=== PATIENT | female | born 1985 | race Caucasian/White ===

== ENCOUNTER 2018-03-10 15:12 | Inpatient (IN) | payer SELFPAY ==
[~2018-03-10] VITALS: Ht 165.1 cm; Wt 83.9 kg
[2018-03-10] MEDS ORDERED: IV NS 0.9% 1,000 ML BAG IV ONE (15:30)
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
--- NOTE | 2018-03-10 15:55 | NUR ---
PT TAKEN TO XRAY/CT.
[2018-03-10 16:20] LABS: BASOPHILS % (AUTO) 0.3 % (0.0-2.0); EOSINOPHILS % (AUTO) 0.2 % (0.0-6.0); HEMATOCRIT 29 % (33-45); HEMOGLOBIN 9.2 g/dL (11.5-14.8); LYMPHOCYTES # (AUTO) 1.1 /CMM (0.8-4.8); MEAN CORPUSCULAR HEMOGLOBIN 20 PG (26.0-33.0); MEAN CORPUSCULAR HGB CONC 32 g/dl (31.0-36.0); MEAN CORPUSCULAR VOLUME 64 fL (82-100); MONOCYTES # (AUTO) 0.4 /CMM (0.1-1.30); MONOCYTES % (AUTO) 4.4 % (2.0-12.0); NEUTROPHILS # (AUTO) 8.6 /CMM (1.8-8.9); NEUTROPHILS % (AUTO) 84.1 % (43.0-81.0); PLATELET COUNT (AUTO) 242 /CMM (150-450); RDW COEFFICIENT OF VARIATION 16.2 (11.5-15.0); RED BLOOD CELL COUNT(AUTO) 4.54 MIL/uL (4.0-5.2); WHITE BLOOD COUNT (AUTO) 10.1 K/uL (4.3-11.0)
[2018-03-10 16:34] LABS: INR 0.98 (0.85-1.15)
[2018-03-10 16:38] LABS: TROPONIN I < 0.017 ng/mL (0.00-0.056)
--- NOTE | 2018-03-10 16:46 | NUR ---
ORTHO ON-CALL PAGED.
[2018-03-10] MEDS ORDERED: MORPHINE SULFATE INJ 2 MG/ML DISP.SYRIN ONE (16:51)
[2018-03-10] MEDS ORDERED: MORPHINE SULFATE INJ 4 MG/ML DISP.SYRIN ONE (16:51)
[2018-03-10 16:52] LABS: CARBON DIOXIDE 23 mmol/L (21-32); CHLORIDE 106 mmol/L (98-107); POTASSIUM 3.2 mmol/L (3.5-5.1); SODIUM SERUM 138 mmol/L (136-145)
[2018-03-10 16:53] LABS: ALANINE AMINOTRANSFERASE 25 U/L (12-78); ALBUMIN 3.4 g/dL (3.4-5.0); ALKALINE PHOSPHATASE 70 U/L (46-116); ASPARTATE AMINOTRANSFERASE 17 U/L (15-37); BILIRUBIN,DIRECT 0.1 mg/dL (0.0-0.2); BILIRUBIN,TOTAL 0.2 mg/dL (0.2-1.0); CALCIUM, SERUM 8.7 mg/dL (8.5-10.1); CREATININE 0.8 mg/dL (0.6-1.3); GLUCOSE 96 mg/dL (74-106); TOTAL PROTEIN, SERUM 7.7 g/dL (6.4-8.2); UREA NITROGEN, BLOOD 10 mg/dL (7-18)
[2018-03-10] MEDS ORDERED: MORPHINE SULFATE INJ 2 MG/ML DISP.SYRIN IM ONE (17:00)
--- NOTE | 2018-03-10 17:05 | NUR ---
MANDO BRANCH AT BEDSIDE FOR L ANKLE SPLINT PLACEMENT.
[2018-03-10] MEDS ORDERED: MORPHINE SULFATE INJ 2 MG/ML DISP.SYRIN IV PRN (18:30)
[2018-03-10] MEDS ORDERED: ONDANSETRON HCL/PF 4 MG/2 ML VIAL IVP PRN (18:30)
[2018-03-10] MEDS ORDERED: ZOLPIDEM TARTRATE 5 MG TABLET PO PRN (18:30)
[2018-03-10] MEDS ORDERED: ACETAMINOPHEN 325 MG TABLET PO PRN (18:30)
[2018-03-10] MEDS ORDERED: Z GUARD REMEDY 2 OZ OINT TP PRN (18:30)
[2018-03-10] MEDS ORDERED: MAG HYDROX/AL HYDROX/SIMETH 30 ML UDC PO PRN (18:30)
[2018-03-10] MEDS ORDERED: HYDROMORPHONE INJ 2 MG/ML DISP.SYRIN IV PRN (18:30)
[2018-03-10] MEDS ORDERED: ALPRAZOLAM 0.25 MG TABLET PO PRN (18:30)
[2018-03-10] MEDS ORDERED: MAGNESIUM HYDROXIDE 30 ML UDC PO PRN (18:30)
[2018-03-10] MEDS ORDERED: POTASSIUM CHLORIDE 20 MEQ TAB.PRT.SR PO ONE ×2 (19:00→20:30)
[2018-03-10] MEDS ORDERED: HYDROMORPHONE INJ 2 MG/ML DISP.SYRIN ONE (19:46)
--- NOTE | 2018-03-10 19:49 | NUR ---
MEDICATED PT ORDERED FOR PAIN
[2018-03-10 20:00] VITALS: BP 131/71
--- NOTE | 2018-03-10 20:06 | NUR ---
COMPUTER SYSTEMS INFORMATION DIRECTOR NEW ADMISSION NOTES RECEIVED PT FROM ER VIA DAVE, ACCOMPANIED BY STAFF TO ROOM 313-1. A & O X 4, NO SOB, NO ACUTE CHANGES NOTED. NO EPISODE OF LOC NOTED. VSS, @ RA, SATTING 100%. HAS C/O PAIN 3/10 TO LEFT LEG & ANKLE. MORPHINE WAS GIVEN IN THE ER & WAS EFFECTIVE. ABLE TO USE RIGHT LEG FOR MOBILITY. SKIN CLEAR & INTACT. IV ACCESS TO RIGHT HAND, INTACT PATENT. ALL BELONGINGS ACCOUNTED FOR & DOCUMENTED BY ACID CLEANER. ALL NEEDS MET. ALL ORDERS REVIEWED WITH MD, NOTED & CARRIED OUT. INSTRUCTED PT TO INFORM THE NURSE IF PAIN MED IS NEEDED, PT VERBALIZED UNDERSTANDING. BED IN LOW LOCKED POSITION, CALL LIGHT WITHIN REACH. SAFETY MEASURES IN PLACE. WILL CONTINUE TO MONITOR ACCORDINGLY.
[2018-03-10 20:10] VITALS: BP 131/71
--- NOTE | 2018-03-10 20:10 | NUR ---
CARTOGRAPHIC DESIGNER NOTE PT IA ON TELE MONITORING WITH SR 70. NO SRINIVAS NOTED. PT IS CALM & COOPERATIVE @ THIS TIME.
--- NOTE | 2018-03-10 20:18 | NUR ---
PT TRANSFERED TO FLOOR. STABLE CONDITION.
[2018-03-10] MEDS: IV NS 0.9% 1,000 ML IV PRN (20:53)
--- NOTE | 2018-03-10 22:22 | NUR ---
DC DILAUDID PHARMACIST DIANNA CALLED TO CLARIFY DILAUDID & MORPHINE ORDER WITH , PER DIANNA, ONE PAIN MED NEEDS TO BE DC'D. PT PREFFERED TO GET MORPHINE IF NEEDED. CLARIFIED THE ORDER & DC'D DILAUDID. NOTED & CARRIED OUT.
[2018-03-11] VITALS: BP 107/60
--- NOTE | 2018-03-11 01:53 | NUR ---
PHYSICIAN ASST NOTE PT IS SLEEPING @ THIS TIME. NO S/S OF PAIN NOTED. MONITORING CLOSELY.
[2018-03-11 04:00] VITALS: BP 116/68
[2018-03-11] MEDS: MORPHINE SULFATE INJ 4 MG/ML DISP.SYRIN IV PRN ×2 (04:28→09:05)
--- NOTE | 2018-03-11 04:28 | NUR ---
PRN MORPHINE GIVEN PT C/O PAIN TO LEFT LEG/ANKLE 04/08, OFFERED NORCO BUT SHE ASKED FOR MORPHINE DUE TO SEVERE PAIN. VSS, 116/68, 67, 18, 99% @ RA. PRN MORPHINE GIVEN, WILL REASSESS FOR EFFECTIVENESS.
--- NOTE | 2018-03-11 06:35 | NUR ---
LENS MOLDING EQUIPMENT OPERATOR CLOSING NOTES PT SLEPT INTERMITTENTLY @ NIGHT, A & O X 4, NO SOB, NO ACUTE CHANGES NOTED. NO EPISODE OF LOC NOTED. VSS, @ RA, SATTING 100%. HAS C/O PAIN 3/10 TO LEFT LEG & ANKLE. MORPHINE WAS GIVEN PRN & WAS EFFECTIVE. ABLE TO USE RIGHT LEG FOR MOBILITY. IV ACCESS TO RIGHT HAND, INTACT PATENT. ALL NEEDS MET. INSTRUCTED PT TO INFORM THE NURSE IF PAIN MED IS NEEDED, PT VERBALIZED UNDERSTANDING. BED IN LOW LOCKED POSITION, CALL LIGHT WITHIN REACH. SAFETY MEASURES IN PLACE. WILL ENDORSE TO AM RN FOR CONTINUITY OF CARE.
[2018-03-11 07:10] LABS: BASOPHILS % (AUTO) 0.4 % (0.0-2.0); EOSINOPHILS % (AUTO) 0.6 % (0.0-6.0); HEMATOCRIT 29 % (33-45); HEMOGLOBIN 9.2 g/dL (11.5-14.8); LYMPHOCYTES # (AUTO) 1.6 /CMM (0.8-4.8); LYMPHOCYTES % (AUTO) 22.6 % (20.0-44.0); MEAN CORPUSCULAR HEMOGLOBIN 21 PG (26.0-33.0); MEAN CORPUSCULAR HGB CONC 32 g/dl (31.0-36.0); MEAN CORPUSCULAR VOLUME 65 fL (82-100); MONOCYTES # (AUTO) 0.4 /CMM (0.1-1.30); MONOCYTES % (AUTO) 5.4 % (2.0-12.0); NEUTROPHILS # (AUTO) 5.3 /CMM (1.8-8.9); PLATELET COUNT (AUTO) 265 /CMM (150-450); RDW COEFFICIENT OF VARIATION 16.4 (11.5-15.0); RED BLOOD CELL COUNT(AUTO) 4.42 MIL/uL (4.0-5.2); WHITE BLOOD COUNT (AUTO) 7.3 K/uL (4.3-11.0)
[2018-03-11 07:16] LABS: ALBUMIN 3.2 g/dL (3.4-5.0); BILIRUBIN,TOTAL 0.3 mg/dL (0.2-1.0); CALCIUM, SERUM 8.4 mg/dL (8.5-10.1); CREATININE 0.6 mg/dL (0.6-1.3); POTASSIUM 3.8 mmol/L (3.5-5.1); TOTAL PROTEIN, SERUM 7.5 g/dL (6.4-8.2)
[2018-03-11 07:27] LABS: CREATINE KINASE MB 0.7 ng/mL (0-3.6); THYROID STIMULATING HORMONE 4.65 uIU/mL (0.358-3.74)
[2018-03-11 08:00] VITALS: BP 112/66
[2018-03-11] MEDS: IV NS 0.9% 1,000 ML IV PRN ×2 (09:06→23:40)
[2018-03-11] MEDS ORDERED: ALPRAZOLAM 0.5 MG TABLET PO PRN (09:21)
[2018-03-11 09:53] LABS: RETICULOCYTE COUNT 1.8 % (0.6-2.5)
[2018-03-11] MEDS: HYDROCODONE/APAP 10/325MG 1 EA TABLET PO PRN ×2 (15:04→22:09)
[2018-03-11 16:00] VITALS: BP 111/65
[2018-03-11] MEDS: SOD FERRIC GLUC 125 MG in IV NS 0.9% 100 ML IV SCH (16:25)
--- NOTE | 2018-03-11 18:07 | NUR ---
Patient lives locally with spouse/family.She is ambulatory and independent with adl's prior to admit. No DME reported. is involved and supportive. Plan to dc home once discharge. Family will provide transportation. Addendum: 03/11/18 at 1807 by DIANA CHEUNG RN Amended: Links added.
--- NOTE | 2018-03-11 19:30 | NUR ---
RN NOTES PATIENT AWAKE ALERT AND VERBALLY RESPONSIVE, CONFUSED, ABLE TO MAKE NEEDS KNOWN, RESPIRATIONS EVEN AND UNLABORED, ABLE TO MAKE NEEDS KNOWN, DENIES ANY PAIN OR DISCOMFORT AT THIS TIME.IV ACCESS PATENT AND INTACT NO REDNESS OR INFILTRATION, SAFETY MEASURES IN PLACE, REMINDED PATIENT TO CALL WHEN ASSISTANCE IS NEEDED. WILL CONTINUE TO FOLLOW UP WITH PT CARE NEEDS, CALL LIGHT WITH REACH WILL CONTINUE TO MONITOR AND ENDORSED TO NEXT SHIFT FOR CONTINUITY OF CARE Addendum: 03/11/18 at 1956 by MICHAEL SUMMERS RN CORRECTION OF ENTRY PT AWAKE ALERT AND ORIENTED X4
--- NOTE | 2018-03-11 19:52 | NUR ---
RN NOTES PATIENT RECEIVED AWAKE ALERT AND VERBALLY RESPONSIVE, CONFUSED, ABLE TO MAKE NEEDS KNOWN, RESPIRATIONS EVEN AND UNLABORED, ABLE TO MAKE NEEDS KNOWN, DENIES ANY PAIN OR DISCOMFORT AT THIS TIME.IV ACCESS PATENT AND INTACT NO REDNESS OR INFILTRATION, SAFETY MEASURES IN PLACE, REMINDED PATIENT TO CALL WHEN ASSISTANCE IS NEEDED. WILL CONTINUE TO FOLLOW UP WITH PT CARE NEEDS, CALL LIGHT WITH REACH WILL CONTINUE TO MONITOR Addendum: 03/11/18 at 1953 by MICHAEL SUMMERS RN CORRECTION OPENING NOTES AT 0720 Addendum: 03/11/18 at 1955 by MICHAEL SUMMERS RN CORRECTION OF ENTRY PT AWAKE ALERT AND ORIENTED X4
[2018-03-11 20:00] VITALS: BP 114/70
--- NOTE | 2018-03-11 20:00 | NUR ---
MS/RN OPENING NOTES PATIENT IN BED, ALERT, ORIENTED, CALM AND COOPERATIVE TO CARE. DENIES ANY PAIN, FAMILY WAS AT BED SIDE. SKIN WARM TO TOUCH. RESPIRATIONS EVEN AND UNLABORED. RECEIVED REPORT FROM AM RN FOR SRINIVAS. DISCUSSED PLAN OF CARE, INFORMED NPO AFTER MIDNIGHT DUE TO PROCEDURE TO BE DONE CATHERINE, TO FOLLOW UP CONSENT FORM TO BE SIGNED AND CHECKLIST.
--- NOTE | 2018-03-11 22:10 | NUR ---
ms/rn notes patient reported 7/10 pain level on left ankle , observe grimace and guarding, norco 10-325 mg po tablet given, monitoring for pain relief and effectiveness.
[2018-03-12] VITALS (11 sets, daily range): BP systolic 95–135; BP diastolic 59–76
--- NOTE | 2018-03-12 06:25 | NUR ---
313-1 MS/RN NOTES PATIENT ABLE TO SLEEP DURING THE NIGHT, SKIN WARM TO TOUCH, RESPIRATIONS EVEN AND UNLABORED. MONITORING FOR ANY PAIN CALL LIGHTS WITHIN REACH .ON NPO FOR PROCEDURE. WILL ENDORSE TO AM RN FOR SRINIVAS. ALERT, ORIENTED. CALL LIGHTS WITHIN REACH, BED IN LOCK POSIITON.
[2018-03-12] MEDS: MORPHINE SULFATE INJ 4 MG/ML DISP.SYRIN IV PRN ×3 (06:44→19:57)
--- NOTE | 2018-03-12 06:44 | NUR ---
MS/RN NOTES PATIENT OBSERVED AND REPORTED PAIN IN LEFT ANKLE AFTER GOING TO [facility], REQUEST TO HAVE PRN MEN IV MORPHINE PER MD ORDER FOR PAIN LEVEL 8/10.
--- NOTE | 2018-03-12 07:40 | NUR ---
RN NOTES PATIENT AWAKE ALERT AND VERBALLY RESPONSIVE, ABLE TO MAKE NEEDS KNOWN, RESPIRATIONS EVEN AND UNLABORED, ABLE TO MAKE NEEDS KNOWN, DENIES ANY PAIN OR DISCOMFORT AT THIS TIME.IV ACCESS PATENT AND INTACT NO REDNESS OR INFILTRATION, SAFETY MEASURES IN PLACE, REMINDED PATIENT TO CALL WHEN ASSISTANCE IS NEEDED. WILL CONTINUE TO FOLLOW UP WITH PT CARE NEEDS, CALL LIGHT WITH REACH WILL CONTINUE TO MONITOR
[2018-03-12] MEDS ORDERED: BACITRACIN 50000 UNITS/VIAL ONE (10:33)
[2018-03-12] MEDS ORDERED: BUPIVACAINE 0.5 % PF 150 MG/30 ML VIAL ONE (10:33)
--- NOTE | 2018-03-12 12:52 | NUR ---
RN NOTES PATIENT TAKEN TO OR IN STABLE CONDITION
--- NOTE | 2018-03-12 13:11 | NUR ---
ORTHOSTATIC BP LYING 116/72 HR 78 SITTING 121/74 HR 64 STANDING 119/75 HR 65 Addendum: 03/12/18 at 1312 by MICHAEL SUMMERS RN Amended: Links added.
[2018-03-12] MEDS ORDERED: FENTANYL PF 100MCG/2ML AMPUL ONE (13:14)
[2018-03-12] MEDS: ENOXAPARIN SODIUM 40 MG/0.4 ML DISP.SYRIN SQ SCH (14:40)
[2018-03-12] MEDS ORDERED: KETOROLAC TROMETHAMINE INJ 30 MG/ML VIAL ONE (14:48)
--- NOTE | 2018-03-12 15:17 | NUR ---
RN NOTES/ POST OP PT BACK FROM OR, AWAKE ALERT AND VERBALLY RESPONSIVE ABLE TO MAKE NEEDS KNOWN, RESPIRATIONS EVEN AND UNLABORED, WILL CONTINUE TO MONITOR PER MD ALEJANDRE TO START TOMORROW, LLE ELEVATED AND ICE PLACED FOR PAIN RELIEF AND COMFORT, WILL CONTINUE TO MONITOR
[2018-03-12] MEDS: SOD FERRIC GLUC 125 MG in IV NS 0.9% 100 ML IV SCH (15:38)
--- NOTE | 2018-03-12 19:32 | NUR ---
RN NOTES PATIENT AWAKE ALERT AND VERBALLY RESPONSIVE, ABLE TO MAKE NEEDS KNOWN, RESPIRATIONS EVEN AND UNLABORED, ABLE TO MAKE NEEDS KNOWN, DENIES ANY PAIN OR DISCOMFORT AT THIS TIME.IV ACCESS PATENT AND INTACT NO REDNESS OR INFILTRATION, SAFETY MEASURES IN PLACE, REMINDED PATIENT TO CALL WHEN ASSISTANCE IS NEEDED. WILL CONTINUE TO FOLLOW UP WITH PT CARE NEEDS, CALL LIGHT WITH REACH WILL CONTINUE TO MONITOR AND ENDORSE TO NEXT SHIFT FOR CONTINUITY OF CARE
--- NOTE | 2018-03-12 19:50 | NUR ---
RN INITIAL NOTES: RECEIVED REPORT FROM MICHAEL BEE. PT IN BED, AWAKE, A/O X3, ON RA, RESPIRATION EVEN AND UNLABORED. PT HAS MOMENTS OF BLACK OUT, MD AWARE. S/P LEFT ANKLE ORIF TODAY 03/12/18, LEFT LEG ELEVATED ON PILLOW, CAST IN PLACED, PT ABLE TO MOVE AND WIGGLE TOES, HAS GOOD CAPILLARY REFILL NOTED, PT DENIES ANY NUMBNESS OR TINGLING SENSATION ON LEFT LEG, BUT IS C/O 8/10 PAIN. DISCUSSED PLAN OF CARE TO THE PT. AT BEDSIDE. IV ACCESS PATENT AND FLUSHING WELL, INFUSING WITH NS AT 75ML/HR. SAFETY PRECAUTIONS FOR FALL INITIATED, CALL LIGHT IN REACH, WILL CONTINUE MONITORING PT.
[2018-03-12] MEDS: IV NS 0.9% 1,000 ML IV PRN (19:58)
--- NOTE | 2018-03-12 19:58 | NUR ---
PRN MORPHINE: PT C/O 04/08 LEFT ANKLE PAIN, S/P SURGERY TODAY, REQUESTING FOR MORPHINE, PRN MORPHINE 4MG IVP ADMINISTERED TO THE PT AT THIS TIME, WILL CONTINUE TO MONITOR AND REASSESS
[2018-03-12] MEDS: ANCEF 1 GM/50 ML D5W IV SCH ×2 (20:02)
--- NOTE | 2018-03-12 21:43 | NUR ---
RN NOTES: ASSISTED PT IN USING BED SIDE COMMODE, PT ABLE TO PIVOT AND NOT PUT PRESSURE ON LLE. VOIDED 500ML
[2018-03-13] MEDS: HYDROCODONE/APAP 10/325MG 1 EA TABLET PO PRN ×4 (02:22→18:54)
--- NOTE | 2018-03-13 02:23 | NUR ---
PRN NORCO 10/325: PT C/O 03/08 LEFT ANKLE PAIN STATED SHE WOULD LIKE NORCO AT THIS TIME, PRN NORCO 10/325 MG TAB PO ADMINISTERED AT THIS TIME, WILL CONTINUE TO MONITOR AND REASSESS
[2018-03-13] MEDS: ANCEF 1 GM/50 ML D5W IV SCH ×4 (04:10→13:30)
--- NOTE | 2018-03-13 06:44 | NUR ---
RN CLOSING NOTES: PT IN BED, AWAKE, REMAINS ON RA, RESPIRATION EVEN AND UNLABORED. STATED HER PAIN WERE MANAGED WITH MORPHINE IV. IV ACCESS REMAINS PATENT AND FLUSHING WELL, INFUSING WITH NS AT 75ML/HR. NO S/S OF INFILTRATION NOTED. LEFT LEG REMAINS ON CAST, PT DENIES ANY NUMBNESS, TINGLING SENSATION OF LEG. NO N/V NOTED. PT ABLE TO TRANSFER FROM BED TO BEDSIDE COMMODE, ABLE TO PIVOT, AND NWB LLE. PT TOLERATED ACTIVITY WELL. VS REMAINS STABLE, NEEDS ATTENDED. SAFETY PRECAUTIONS FOR FALL REMAINS ENGAGED. CALL LIGHT IN REACH. WILL ENDORSE TO DAY RN FOR SRINIVAS.
[2018-03-13] MEDS: MORPHINE SULFATE INJ 4 MG/ML DISP.SYRIN IV PRN ×3 (06:57→20:17)
--- NOTE | 2018-03-13 06:57 | NUR ---
PRN MORPHINE: PT C/O 04/08 LEFT ANKLE PAIN REQUESTING FOR MORPHINE, PRN MORPHINE 4MG IVP ADMINISTERED TO THE PT AT THIS TIME, WILL CONTINUE TO MONITOR AND REASSESS
--- NOTE | 2018-03-13 07:10 | NUR ---
MSRN NOTES. PT A&0X3, AWAKE AND WATCHING T.V. PT TOLERATING ROOM AIR WITHOUT DISTRESS AND REPORTS CURRENT PAIN MANAGEMENT ADEQUATE. PT IVC A TR HAND INTACT AND OPERATIONAL. PT WITH CAST TO LEFT LE. TEMP APPROXIMATELY EQUAL BY PALPATION TO BOTH LEGS, CAP REFILL WITHIN NORMAL LIMITS AND NEURO INTACT. PT BED IN LOWEST LOCKED POSITION WITH HNADRAILSX2 AND CALL CORDOVA WITHIN REACH. PT BRIEFED ON TODAY'S POC AND IS WITHOUT CONCERN OR COMPLAINT AT THIS TIME.
[2018-03-13 08:00] VITALS: BP 117/67
[2018-03-13 08:04] LABS: CALCIUM, SERUM 8.6 mg/dL (8.5-10.1); CREATININE 0.6 mg/dL (0.6-1.3); POTASSIUM 3.4 mmol/L (3.5-5.1)
[2018-03-13 08:14] LABS: WHITE BLOOD COUNT (AUTO) 9.1 K/uL (4.3-11.0)
[2018-03-13 08:15] LABS: BASOPHILS % (AUTO) 0.3 % (0.0-2.0); EOSINOPHILS % (AUTO) 0.2 % (0.0-6.0); HEMATOCRIT 28 % (33-45); HEMOGLOBIN 8.4 g/dL (11.5-14.8); LYMPHOCYTES % (AUTO) 23.3 % (20.0-44.0); MEAN CORPUSCULAR HEMOGLOBIN 20 PG (26.0-33.0); MEAN CORPUSCULAR HGB CONC 31 g/dl (31.0-36.0); MEAN CORPUSCULAR VOLUME 65 fL (82-100); MONOCYTES % (AUTO) 5.8 % (2.0-12.0); NEUTROPHILS % (AUTO) 70.4 % (43.0-81.0); PLATELET COUNT (AUTO) 283 /CMM (150-450); RDW COEFFICIENT OF VARIATION 17.7 (11.5-15.0)
[2018-03-13] MEDS ORDERED: POTASSIUM CHLORIDE 20 MEQ TAB.PRT.SR PO ONE (10:15)
[2018-03-13] MEDS: SOD FERRIC GLUC 125 MG in IV NS 0.9% 100 ML IV SCH (14:49)
[2018-03-13 16:00] VITALS: BP 122/74
[2018-03-13 16:24] VITALS: BP_SYST 111; BP_SYST 119; BP_SYST 122; BP_DIAS 60; BP_DIAS 74; BP_DIAS 87
--- NOTE | 2018-03-13 18:17 | NUR ---
MSRN NOTES. PT REMAINS A&0X3, TOLERATING ROOM AIR WITHOUT DISTRESS AND REPORTS CURRENT PAIN MANAGEMENT ADEQUATE. PT IVC AT R HAND INTACT AND OPERATIONAL AND SL. PT NEURO INTACT. PT BED IN LOWEST LOCKED POSITION WITH HANDRAILSX2 AND CALL CORDOVA WITHIN REACH. ALL DAY NURSE DUTIES ATTENDED TO AND PT IS WITHOUT CONCERN OR COMPLAINT AT THIS TIME, WILL ENDORSE TO NIGHT NURSE.
--- NOTE | 2018-03-13 19:15 | NUR ---
RN OPENING NOTES PT AWAKE AND RESTING IN BED. FAMILY AT BEDSIDE. PATIENT COMPLAINS OF LEFT LEG PAIN (03/08) DAY SHIFT NURSE GAVE NORCO @1900, INSTRUCTED THE PATIENT TO GIVE MEDICATION TIME TO BECOME EFFECTIVE. WILL REASSESS PAIN LEVEL. PT HAS A RIGHT HAND IV #20 INTACT AND PATENT. LEFT ANKLE ORIF DRESSING INTACT. SAFETY PRECAUTIONS IN PLACE BED IN LOWEST LOCKED POSITION, X2 SIDE RAILS UP, CALL LIGHT WITHIN REACH WILL CONTINUE TO MONITOR.
[2018-03-13 20:00] VITALS: BP 130/84
[2018-03-13] MEDS: ENOXAPARIN SODIUM 40 MG/0.4 ML DISP.SYRIN SQ SCH (20:15)
[2018-03-14] MEDS: MORPHINE SULFATE INJ 4 MG/ML DISP.SYRIN IV PRN (04:14)
--- NOTE | 2018-03-14 06:44 | NUR ---
RN CLOSING NOTES PT AWAKE AND RESTING IN BED. NO COMPLAINTS OF PAIN, SOB OR DISTRESS AT THIS TIME. PT HAS A RIGHT HAND IV #20 INTACT AND PATENT. LEFT ANKLE ORIF DRESSING INTACT. SAFETY PRECAUTIONS IN PLACE BED IN LOWEST LOCKED POSITION, X2 SIDE RAILS UP, CALL LIGHT WITHIN REACH WILL ENDORSE TO DAY SHIFT NURSE FOR CONTINUITY OF CARE.
[2018-03-14] MEDS: HYDROCODONE/APAP 5/325MG 1 EACH TABLET PO PRN ×2 (07:26→13:48)
--- NOTE | 2018-03-14 07:30 | NUR ---
RN NOTES PATIENT AOX4, BREATHING EVEN AND UNLABORED, NO SOB NOTED, C/O PAIN ON HER LEFT LEG, NORCO ADMINISTERED, ASSISTED PATIENT TO RESTROOM, PATIENT ABLE TO AMBULATE TO RESTROOM. NWB ON LLE. WILL CONTINUE TO MONITOR.
[2018-03-14 07:35] LABS: CALCIUM, SERUM 8.7 mg/dL (8.5-10.1); CREATININE 0.6 mg/dL (0.6-1.3); MAGNESIUM 1.7 mg/dL (1.8-2.4); PHOSPHORUS 4.1 mg/dL (2.5-4.9); POTASSIUM 3.6 mmol/L (3.5-5.1)
[2018-03-14 08:21] VITALS: BP 128/81
--- NOTE | 2018-03-14 09:55 | NUR ---
RN NOTES PATIENT REPORTED BRUISING AND MILD SWELLING ON RIGHT LOWER LEG, BELOW THE CALF, SKIN IS INTACT, PATIENT VERBALIZE PAIN TO TOUCH, BUT IS ABLE TO BEAR WEIGHT ON RLE, INFORMED DR. AVINA, NO NEW ORDER AT THIS TIME.
[2018-03-14] MEDS: HYDROCODONE/APAP 10/325MG 1 EA TABLET PO PRN (10:23)
[2018-03-14] MEDS: Magnesium 1GM/D5W 100ML PREMIX 100 ML IV SCH ×2 (10:32→11:52)
[2018-03-14] MEDS ORDERED: HYDR-3972 PO (11:12)
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
== END 2018-03-14 14:01 | disposition home or self-care (01) | DRG 494 ==
LOC: ER 15:16 → TELE 18:39 → MED 03-11 09:13
PROVIDERS: ADMIT Internal Medicine; ATTEND Internal Medicine
PROC: 0QSH04Z Reposition Left Tibia with Internal Fixation Device, Open Approach (ICD-10-PCS; principal; 2018-03-12 12:30)
DX: S82.872A Displaced pilon fracture of left tibia, initial encounter for closed fracture (principal); Y92.410 Unspecified street and highway as the place of occurrence of the external cause; D50.9 Iron deficiency anemia, unspecified; V48.5XXA Car driver injured in noncollision transport accident in traffic accident, initial encounter; S82.832A Other fracture of upper and lower end of left fibula, initial encounter for closed fracture; G90.8 Other disorders of autonomic nervous system; E87.6 Hypokalemia
CPT/HCPCS: 36415; 70450-TC; 73600-TC; 73610-TC; 80048-TC; 80076-TC; 82306; 82553-TC; 82746; 83540-TC; 83735-TC; 84100-TC; 84439-TC; 84443-TC; 84484-TC; 84703-TC; 85025-TC; 85045-TC; 85652-TC; 85730-TC; 86850-TC; 87081-TC; 93307-TC; 93880-TC; 95819-TC; 97110-TC; 97116-TC; 97530-TC; A4606; J0690; J1170; J1650; J1885; J2270; J2916; J3010; J3475; J3490; J7030; J7060; Z7610

== ENCOUNTER 2018-09-22 00:17 | Emergency (ER) | payer MEDICAID ==
[~2018-09-22] VITALS: Ht 165.1 cm; Wt 83.9 kg
[~2018-09-22 00:17] MED LIST: HYDR-3972 PO
--- NOTE | 2018-09-22 00:25 | NUR ---
Pt came in due to 2 episodes of seizure at home, the latest happened last night, which lasted for 15 minutes witnessed by her . Pt is A, O/4, moves all extremities without difficulty, on RA. She takes Keppra at home.
[2018-09-22] MEDS ORDERED: LEVETIRACETAM (500MG) 500 MG/5 ML VIAL IV ONE (00:52)
[2018-09-22] MEDS: LEVETIRACETAM (500MG) 500 MG in IV NS 0.9% 100 ML IV ONE (01:08)
[2018-09-22 01:11] LABS: BASOPHILS % (AUTO) 0.3 % (0.0-2.0); EOSINOPHILS % (AUTO) 0.4 % (0.0-6.0); HEMATOCRIT 37 % (33-45); HEMOGLOBIN 12.3 g/dL (11.5-14.8); LYMPHOCYTES # (AUTO) 1.4 /CMM (0.8-4.8); LYMPHOCYTES % (AUTO) 14.7 % (20.0-44.0); MEAN CORPUSCULAR HGB CONC 33 g/dl (31.0-36.0); MEAN CORPUSCULAR VOLUME 77 fL (82-100); MONOCYTES # (AUTO) 0.6 /CMM (0.1-1.30); NEUTROPHILS # (AUTO) 7.4 /CMM (1.8-8.9); NEUTROPHILS % (AUTO) 78.6 % (43.0-81.0); PLATELET COUNT (AUTO) 238 /CMM (150-450); RED BLOOD CELL COUNT(AUTO) 4.84 MIL/uL (4.0-5.2); WHITE BLOOD COUNT (AUTO) 9.5 K/uL (4.3-11.0)
[2018-09-22 01:25] LABS: ALANINE AMINOTRANSFERASE 37 U/L (12-78); ALBUMIN 3.4 g/dL (3.4-5.0); ALCOHOL, BLOOD < 3 mg/dL (0-0); ALKALINE PHOSPHATASE 70 U/L (46-116); ASPARTATE AMINOTRANSFERASE 22 U/L (15-37); BILIRUBIN,TOTAL 0.1 mg/dL (0.2-1.0); CALCIUM, SERUM 8.9 mg/dL (8.5-10.1); CARBON DIOXIDE 25 mmol/L (21-32); CREATININE 0.6 mg/dL (0.6-1.3); GLUCOSE 105 mg/dL (74-106); TOTAL PROTEIN, SERUM 7.4 g/dL (6.4-8.2); UREA NITROGEN, BLOOD 10 mg/dL (7-18)
--- NOTE | 2018-09-22 01:25 | NUR ---
Unable to collect urine from pt until now. Pt denies any urge to void since she got here.
[2018-09-22 01:38] LABS: CHLORIDE 105 mmol/L (98-107); POTASSIUM 3.7 mmol/L (3.5-5.1); SODIUM SERUM 140 mmol/L (136-145)
--- NOTE | 2018-09-22 02:10 | NUR ---
Pt ambulated to the BR, urine sample collected and sent to lab.
--- NOTE | 2018-09-22 02:49 | NUR ---
Pt transported to Radiology for CT Head
--- NOTE | 2018-09-22 03:05 | NUR ---
Pt came back from Radiology.
--- NOTE | 2018-09-22 03:15 | NUR ---
Pt resting in bed, no seizure episode since admission.
--- NOTE | 2018-09-22 04:00 | NUR ---
Patient discharged to home in stable condition. Written and verbal after care instructions given. Patient verbalizes understanding of instruction.IV removed. Catheter intact and site benign. Pressure and 4x4 applied to site. No bleeding noted. Pt ambulatory with a steady gait
[2018-09-22 04:06] VITALS: BP 103/51
== END 2018-09-22 04:00 | disposition home or self-care (01) ==
LOC: ER 00:17
DX: G40.909 Epilepsy, unspecified, not intractable, without status epilepticus (principal); R94.31 Abnormal electrocardiogram [ECG] [EKG]
CPT/HCPCS: 36415; 70450-TC; 71045-TC; 80048-TC; 80076-TC; 80305; 84703-TC; 85025-TC; G0480; J1953; J7030